=== PATIENT | female | born 1945 | race Caucasian/White ===

== ENCOUNTER 2023-08-19 12:43 | Inpatient (IN) | payer MEDICARE ==
[2023-08-19] MEDS ORDERED: Zolpidem Tartrate 5 MG TAB PO PRN (19:06)
[2023-08-19] MEDS ORDERED: Bisacodyl 10 MG SUPP PR PRN (19:07)
[2023-08-19] MEDS ORDERED: Ondansetron ODT 4 MG TAB PO PRN (19:07)
[2023-08-19] MEDS ORDERED: Benzonatate 100 MG CAP PO PRN (19:07)
[2023-08-19] MEDS ORDERED: Sodium Chloride 0.65% Nasal 44 ML BOT EA NARE PRN (19:07)
[2023-08-19] MEDS ORDERED: Benzocaine/Menthol 1 LOZ LOZ PO PRN (19:07)
[2023-08-19] MEDS ORDERED: cloNIDine 0.1 MG TAB PO PRN (19:07)
[2023-08-19] MEDS ORDERED: Artificial Tear Sol 15 ML BOT EA EYE PRN (19:07)
[2023-08-19] MEDS ORDERED: Bisacodyl 5 MG TAB PO PRN (19:07)
[2023-08-19] MEDS ORDERED: Acetaminophen 650 MG Suppository PR PRN (19:07)
[2023-08-19] MEDS ORDERED: Calcium Carbonate 500 MG ChewTAB PO PRN ×2 (19:07)
[2023-08-19] MEDS ORDERED: HYDROcodone/Acetaminophen 5/325 mg Tablet PO PRN (19:07)
[2023-08-19] MEDS ORDERED: hydrOXYzine 25 MG TAB PO PRN (19:15)
[2023-08-19] MEDS ORDERED: Ondansetron ODT 4 MG TAB SL PRN (20:30)
[2023-08-19] MEDS: Sodium Chloride 1 GM TAB PO SCH (21:17)
[2023-08-19] MEDS: Dicyclomine 10 MG CAP PO SCH (21:17)
[2023-08-20] MEDS: tiZANidine HCl 4 MG TAB PO SCH ×3 (00:05→17:23)
[2023-08-20 05:54] LABS: #Basophils 0.2 thou/uL (0.0-0.2); #Eosinphils 1.1 thou/uL (0.0-0.7); #Monocytes 0.8 thou/uL (0.11-0.59); #Neutrophils 4.8 thou/uL (1.40-6.50); %Eosinophils 14.4 % (0.0-10.0); %Lymphocytes 12.4 % (21.0-51.0); %Monocytes 10.1 % (0.0-10.0); %Neutrophils 61.1 % (42.0-75.0); Hematocrit 39.5 % (36.0-47.0); Hemoglobin 12.7 g/dL (12.0-16.0); Mean Corpuscular HGB CONC 32.2 g/dL (32.0-36.0); Mean Corpuscular Hemoglobin 33.5 pg (27.0-31.0); Mean Platelet Volume 6.6 fL (7.4-10.4); Platelet Count 257 10x3/uL (130-400); RBC Distribution Width 12.9 % (11.5-14.5); Red Blood Cell (RBC) Count 3.79 mill/uL (4.20-5.40); White Blood Cell (WBC) Count 7.9 10x3/uL (4.8-10.8)
[2023-08-20 06:09] LABS: ALT (SGPT) 16 U/L (8-55); AST (SGOT) 20 U/L (5-34); Albumin 2.9 g/dL (3.4-4.8); Alkaline Phosphatase 73 U/L (40-110); Anion Gap 13 mmol/L (10-20); BUN (Urea Nitrogen) 19 mg/dL (9.8-20.1); Bilirubin, Total 0.4 mg/dL (0.2-1.2); Calc. Creatinine Clearance 39 mL/min (70-130); Calcium 8.4 mg/dL (7.8-10.44); Carbon Dioxide 20 mmol/L (23-31); Chloride 101 mmol/L (98-107); Estimated GFR 55; Globulin 2.3 g/dL (2.4-3.5); Glucose 86 mg/dL (83-110); Potassium 4.6 mmol/L (3.5-5.1); Protein, Total 5.2 g/dL (5.8-8.1); Sodium 129 mmol/L (136-145)
[2023-08-20] MEDS: Acetaminophen 325 MG TAB PO PRN ×2 (08:42→14:54)
[2023-08-20] MEDS: FLUoxetine HCl 10 MG CAP PO SCH (08:42)
[2023-08-20] MEDS: Dicyclomine 10 MG CAP PO SCH ×3 (08:42→20:53)
[2023-08-20] MEDS: Sodium Chloride 1 GM TAB PO SCH ×3 (08:43→20:53)
[2023-08-20] MEDS: Nebivolol HCl 10 MG TAB PO SCH (08:46)
[2023-08-20] MEDS: LOTEPREDNOL EA EYE SCH ×2 (08:47→20:54)
[2023-08-21] MEDS: tiZANidine HCl 4 MG TAB PO SCH ×3 (00:52→17:02)
[2023-08-21 06:46] LABS: Anion Gap 14 mmol/L (10-20); BUN (Urea Nitrogen) 18 mg/dL (9.8-20.1); Calc. Creatinine Clearance 34 mL/min (70-130); Calcium 8.5 mg/dL (7.8-10.44); Carbon Dioxide 17 mmol/L (23-31); Chloride 105 mmol/L (98-107); Estimated GFR 47; Glucose 76 mg/dL (83-110); Potassium 4.8 mmol/L (3.5-5.1); Sodium 131 mmol/L (136-145)
[2023-08-21] MEDS: Nebivolol HCl 10 MG TAB PO SCH (10:37)
[2023-08-21] MEDS: FLUoxetine HCl 10 MG CAP PO SCH (10:38)
[2023-08-21] MEDS: Dicyclomine 10 MG CAP PO SCH ×3 (10:38→21:31)
[2023-08-21] MEDS: Sodium Chloride 1 GM TAB PO SCH ×3 (10:38→21:31)
[2023-08-21] MEDS: LOTEPREDNOL EA EYE SCH ×2 (10:39→21:31)
[2023-08-21] MEDS: diphenhydrAMINE 25 MG CAP PO PRN (11:02)
[2023-08-21] MEDS: Acetaminophen 325 MG TAB PO PRN (14:59)
[2023-08-22] MEDS: tiZANidine HCl 4 MG TAB PO SCH ×3 (00:50→17:00)
[2023-08-22 06:30] LABS: Anion Gap 13 mmol/L (10-20); BUN (Urea Nitrogen) 18 mg/dL (9.8-20.1); Calc. Creatinine Clearance 38 mL/min (70-130); Calcium 8.4 mg/dL (7.8-10.44); Carbon Dioxide 19 mmol/L (23-31); Chloride 107 mmol/L (98-107); Estimated GFR 53; Glucose 82 mg/dL (83-110); Potassium 4.7 mmol/L (3.5-5.1); Sodium 134 mmol/L (136-145)
[2023-08-22] MEDS: Megestrol Acetate 800 MG/20 ML UDCUP PO SCH (09:24)
[2023-08-22] MEDS: Dicyclomine 10 MG CAP PO SCH ×3 (09:25→21:28)
[2023-08-22] MEDS: FLUoxetine HCl 10 MG CAP PO SCH (09:25)
[2023-08-22] MEDS: Sodium Chloride 1 GM TAB PO SCH ×3 (09:25→21:28)
[2023-08-22] MEDS: Senokot S 8.6-50 MG TAB PO PRN (09:25)
[2023-08-22] MEDS: LOTEPREDNOL EA EYE SCH ×2 (09:26→21:29)
[2023-08-22] MEDS: Nebivolol HCl 10 MG TAB PO SCH (09:26)
[2023-08-22] MEDS: diphenhydrAMINE 25 MG CAP PO PRN (09:30)
[2023-08-22] MEDS: Acetaminophen 325 MG TAB PO PRN (21:28)
[2023-08-23] MEDS: tiZANidine HCl 4 MG TAB PO SCH ×3 (01:00→16:59)
[2023-08-23] MEDS: Dicyclomine 10 MG CAP PO SCH ×3 (07:57→20:45)
[2023-08-23] MEDS: Nebivolol HCl 10 MG TAB PO SCH (07:57)
[2023-08-23] MEDS: Sodium Chloride 1 GM TAB PO SCH ×3 (07:57→20:45)
[2023-08-23] MEDS: FLUoxetine HCl 10 MG CAP PO SCH (07:57)
[2023-08-23] MEDS: LOTEPREDNOL EA EYE SCH ×2 (07:59→20:47)
[2023-08-23] MEDS: Megestrol Acetate 800 MG/20 ML UDCUP PO SCH (07:59)
[2023-08-23] MEDS: Acetaminophen 325 MG TAB PO PRN (17:00)
[2023-08-24] MEDS: tiZANidine HCl 4 MG TAB PO SCH ×3 (00:14→16:41)
[2023-08-24 05:52] LABS: Anion Gap 11 mmol/L (10-20); BUN (Urea Nitrogen) 14 mg/dL (9.8-20.1); Calc. Creatinine Clearance 38 mL/min (70-130); Calcium 8.2 mg/dL (7.8-10.44); Carbon Dioxide 21 mmol/L (23-31); Chloride 105 mmol/L (98-107); Estimated GFR 54; Glucose 77 mg/dL (83-110); Potassium 4.3 mmol/L (3.5-5.1); Sodium 133 mmol/L (136-145)
[2023-08-24] MEDS: Megestrol Acetate 800 MG/20 ML UDCUP PO SCH (07:59)
[2023-08-24] MEDS: Dicyclomine 10 MG CAP PO SCH ×3 (08:00→20:17)
[2023-08-24] MEDS: FLUoxetine HCl 10 MG CAP PO SCH (08:00)
[2023-08-24] MEDS: Nebivolol HCl 10 MG TAB PO SCH (08:00)
[2023-08-24] MEDS: Sodium Chloride 1 GM TAB PO SCH ×3 (08:00→20:17)
[2023-08-24] MEDS: LOTEPREDNOL EA EYE SCH ×2 (08:03→20:18)
[2023-08-24 08:26] VITALS: BMI 20.3
[2023-08-24] MEDS: Acetaminophen 325 MG TAB PO PRN (10:17)
[2023-08-24] MEDS: diphenhydrAMINE 25 MG CAP PO PRN (16:41)
[2023-08-25] MEDS: tiZANidine HCl 4 MG TAB PO SCH ×3 (01:07→16:55)
[2023-08-25] MEDS: Acetaminophen 325 MG TAB PO PRN (07:46)
[2023-08-25] MEDS: Nebivolol HCl 10 MG TAB PO SCH (08:09)
[2023-08-25] MEDS: Megestrol Acetate 800 MG/20 ML UDCUP PO SCH (09:10)
[2023-08-25] MEDS: Sodium Chloride 1 GM TAB PO SCH ×3 (09:12→20:15)
[2023-08-25] MEDS: Dicyclomine 10 MG CAP PO SCH ×3 (09:12→20:15)
[2023-08-25] MEDS: FLUoxetine HCl 10 MG CAP PO SCH (09:12)
[2023-08-25] MEDS: LOTEPREDNOL EA EYE SCH ×2 (09:14→20:16)
[2023-08-25] MEDS: Senokot S 8.6-50 MG TAB PO PRN (09:20)
[2023-08-25] MEDS: diphenhydrAMINE 25 MG CAP PO PRN (20:15)
[2023-08-26] MEDS: tiZANidine HCl 4 MG TAB PO SCH ×3 (00:57→17:05)
[2023-08-26] MEDS: diphenhydrAMINE 25 MG CAP PO PRN ×2 (02:21→20:57)
[2023-08-26 06:01] LABS: Anion Gap 12 mmol/L (10-20); BUN (Urea Nitrogen) 15 mg/dL (9.8-20.1); Calc. Creatinine Clearance 41 mL/min (70-130); Calcium 8.2 mg/dL (7.8-10.44); Carbon Dioxide 18 mmol/L (23-31); Chloride 108 mmol/L (98-107); Estimated GFR 58; Glucose 86 mg/dL (83-110); Potassium 4.2 mmol/L (3.5-5.1); Sodium 134 mmol/L (136-145)
[2023-08-26] MEDS: Dicyclomine 10 MG CAP PO SCH ×3 (09:06→20:52)
[2023-08-26] MEDS: Nebivolol HCl 10 MG TAB PO SCH (09:06)
[2023-08-26] MEDS: Sodium Chloride 1 GM TAB PO SCH ×3 (09:06→20:52)
[2023-08-26] MEDS: FLUoxetine HCl 10 MG CAP PO SCH (09:06)
[2023-08-26] MEDS: Megestrol Acetate 800 MG/20 ML UDCUP PO SCH (09:07)
[2023-08-26] MEDS: LOTEPREDNOL EA EYE SCH ×2 (09:14→20:53)
[2023-08-26] MEDS ORDERED: hydrALAZINE 25 MG TAB PO PRN ×2 (19:13→19:23)
[2023-08-26] MEDS ORDERED: cloNIDine 0.1 MG TAB PO PRN (19:23)
[2023-08-26] MEDS: hydrALAZINE 25 MG TAB PO SCH (20:52)
[2023-08-27] MEDS: tiZANidine HCl 4 MG TAB PO SCH ×3 (01:31→18:00)
[2023-08-27 05:54] LABS: Hematocrit 37.8 % (36.0-47.0); Hemoglobin 12.7 g/dL (12.0-16.0); Platelet Count 338 10x3/uL (130-400)
[2023-08-27] MEDS: Megestrol Acetate 800 MG/20 ML UDCUP PO SCH (08:51)
[2023-08-27] MEDS: Dicyclomine 10 MG CAP PO SCH ×3 (08:52→21:35)
[2023-08-27] MEDS: FLUoxetine HCl 10 MG CAP PO SCH (08:52)
[2023-08-27] MEDS: Nebivolol HCl 10 MG TAB PO SCH (08:52)
[2023-08-27] MEDS: Sodium Chloride 1 GM TAB PO SCH ×3 (08:53→21:32)
[2023-08-27] MEDS: hydrALAZINE 25 MG TAB PO SCH ×2 (08:53→21:32)
[2023-08-27] MEDS: LOTEPREDNOL EA EYE SCH ×3 (08:53→21:37)
[2023-08-27] MEDS: Acetaminophen 325 MG TAB PO PRN (13:29)
[2023-08-27] MEDS: diphenhydrAMINE 25 MG CAP PO PRN (21:32)
[2023-08-28] MEDS: tiZANidine HCl 4 MG TAB PO SCH ×3 (01:33→17:01)
[2023-08-28 05:34] LABS: Anion Gap 13 mmol/L (10-20); BUN (Urea Nitrogen) 15 mg/dL (9.8-20.1); Calc. Creatinine Clearance 43 mL/min (70-130); Calcium 8.3 mg/dL (7.8-10.44); Carbon Dioxide 18 mmol/L (23-31); Chloride 107 mmol/L (98-107); Estimated GFR 62; Glucose 86 mg/dL (83-110); Potassium 4.1 mmol/L (3.5-5.1); Sodium 134 mmol/L (136-145)
[2023-08-28] MEDS: Nebivolol HCl 10 MG TAB PO SCH (07:26)
[2023-08-28] MEDS: hydrALAZINE 25 MG TAB PO SCH ×2 (07:26→20:24)
[2023-08-28] MEDS ORDERED: Furosemide 20 MG TAB PO SCH (08:00)
[2023-08-28] MEDS: Megestrol Acetate 800 MG/20 ML UDCUP PO SCH (08:38)
[2023-08-28] MEDS: Sodium Chloride 1 GM TAB PO SCH ×3 (08:39→20:25)
[2023-08-28] MEDS: FLUoxetine HCl 10 MG CAP PO SCH (08:39)
[2023-08-28] MEDS: Dicyclomine 10 MG CAP PO SCH ×3 (08:39→20:23)
[2023-08-28] MEDS: LOTEPREDNOL EA EYE SCH ×2 (08:39→20:25)
[2023-08-28] MEDS: Acetaminophen 325 MG TAB PO PRN ×2 (10:18→20:24)
[2023-08-28] MEDS: diphenhydrAMINE 25 MG CAP PO PRN (20:23)
[2023-08-29] MEDS: tiZANidine HCl 4 MG TAB PO SCH ×3 (00:02→16:54)
[2023-08-29] MEDS ORDERED: Triple Antibiotic Oint 1 GM Packet TOP PRN (07:47)
[2023-08-29] MEDS: LOTEPREDNOL EA EYE SCH ×2 (08:19→20:26)
[2023-08-29] MEDS: Nebivolol HCl 10 MG TAB PO SCH (08:20)
[2023-08-29] MEDS: hydrALAZINE 25 MG TAB PO SCH ×2 (08:20→20:25)
[2023-08-29] MEDS: Dicyclomine 10 MG CAP PO SCH ×3 (08:21→20:25)
[2023-08-29] MEDS: FLUoxetine HCl 10 MG CAP PO SCH (08:21)
[2023-08-29] MEDS: Sodium Chloride 1 GM TAB PO SCH ×3 (08:21→20:26)
[2023-08-29] MEDS: Megestrol Acetate 800 MG/20 ML UDCUP PO SCH (08:21)
[2023-08-29] MEDS ORDERED: Furosemide 40 MG TAB PO SCH (09:30)
[2023-08-29 11:39] LABS: Anion Gap 15 mmol/L (10-20); BUN (Urea Nitrogen) 19 mg/dL (9.8-20.1); Calc. Creatinine Clearance 35 mL/min (70-130); Calcium 8.5 mg/dL (7.8-10.44); Carbon Dioxide 16 mmol/L (23-31); Chloride 107 mmol/L (98-107); Estimated GFR 49; Glucose 101 mg/dL (83-110); Potassium 4.1 mmol/L (3.5-5.1); Sodium 134 mmol/L (136-145)
[2023-08-29] MEDS: Furosemide 40 MG TAB PO SCH (14:05)
[2023-08-29] MEDS: diphenhydrAMINE 25 MG CAP PO PRN (20:25)
[2023-08-30] MEDS: tiZANidine HCl 4 MG TAB PO SCH ×2 (00:19→08:33)
[2023-08-30 06:05] LABS: Anion Gap 14 mmol/L (10-20); BUN (Urea Nitrogen) 17 mg/dL (9.8-20.1); Calc. Creatinine Clearance 38 mL/min (70-130); Calcium 8.3 mg/dL (7.8-10.44); Carbon Dioxide 17 mmol/L (23-31); Chloride 107 mmol/L (98-107); Estimated GFR 55; Glucose 84 mg/dL (83-110); Potassium 3.8 mmol/L (3.5-5.1); Sodium 134 mmol/L (136-145)
[2023-08-30 07:16] VITALS: BP 128/51; TEMP 97.9
[2023-08-30] MEDS: Megestrol Acetate 800 MG/20 ML UDCUP PO SCH (08:31)
[2023-08-30] MEDS: LOTEPREDNOL EA EYE SCH (08:32)
[2023-08-30] MEDS: Nebivolol HCl 10 MG TAB PO SCH (08:33)
[2023-08-30] MEDS: Dicyclomine 10 MG CAP PO SCH ×2 (08:33→14:18)
[2023-08-30] MEDS: Sodium Chloride 1 GM TAB PO SCH ×2 (08:33→14:19)
[2023-08-30] MEDS: FLUoxetine HCl 10 MG CAP PO SCH (08:33)
[2023-08-30] MEDS: Furosemide 40 MG TAB PO SCH ×2 (08:33→14:19)
[2023-08-30] MEDS: hydrALAZINE 25 MG TAB PO SCH (08:33)
== END 2023-08-30 16:00 | disposition home or self-care (01) | DRG 560 ==
LOC: NAV ACUTE 18:05
PROVIDERS: ADMIT Family Medicine; ATTEND Family Medicine
DX: S22.49XD Multiple fractures of ribs, unspecified side, subsequent encounter for fracture with routine healing (principal); E22.2 Syndrome of inappropriate secretion of antidiuretic hormone; I50.32 Chronic diastolic (congestive) heart failure; R53.81 Other malaise; I11.0 Hypertensive heart disease with heart failure; R53.1 Weakness; M54.9 Dorsalgia, unspecified; Z85.53 Personal history of malignant neoplasm of renal pelvis; W19.XXXD Unspecified fall, subsequent encounter; Z86.73 Personal history of transient ischemic attack (TIA), and cerebral infarction without residual deficits
CPT/HCPCS: 36415; 71045; 80048; 80053; 82565; 85014; 85018; 85025; 85049; J1650; Q0162